=== PATIENT | female | born 1970 | race Caucasian/White ===

== ENCOUNTER 2019-11-23 10:48 | Day surgery (SDC) | payer OTHER ==
[2019-11-23] MEDS ORDERED: Depo-Medrol 40 MG/ML IM ONE (10:49)
[2019-11-23] MEDS ORDERED: Marcaine 0.5% SDV 10 ML IJ ONE (10:49)
[2019-11-23] MEDS ORDERED: Xylocaine 1% Vial 30 ML PF IJ ONE (10:49)
[2019-11-23] MEDS ORDERED: Decadron 4 MG INJ IV ONE (10:49)
[2019-11-23] MEDS ORDERED: Ketamine HCl 50 MG/ML ONE (11:45)
[2019-11-23] MEDS ORDERED: DIPRIVAN 200 MG/20 ML IV ONE (11:45)
--- NOTE | 2019-11-23 14:08 | XRAY ---
Indication: Right SI joint and right piriformis injection. Intraoperative fluoroscopy was provided for 22 seconds. 3 digital spot images submitted for interpretation demonstrates posterior needle tip projecting over the inferior right SI joint. Second needle tip projects over the expected right piriformis muscle with small amount of contrast injected for needle tip placement. Correlate with intraoperative findings/report.
[2019-11-23] MEDS ORDERED: Lactated Ringers 1,000 ML IV ONE (15:40)
--- NOTE | 2019-11-23 16:33 | XRAY ---
22 seconds fluoroscopy time in surgery for right SI joint and right piriformis muscle injection.
== END 2019-11-23 12:15 | disposition home or self-care (01) ==
LOC: SDC-PAIN 10:48
PROVIDERS: ATTEND Psychiatry & Neurology Pain Medicine
DX: M46.1 Sacroiliitis, not elsewhere classified (principal); M53.3 Sacrococcygeal disorders, not elsewhere classified; M79.18 Myalgia, other site; M79.10 Myalgia, unspecified site; Z79.899 Other long term (current) drug therapy
CPT/HCPCS: 20552; 72170; 77002; G0260; 27096; J1030; J1100; J2001; J2704; Q9966

== ENCOUNTER 2020-03-07 11:15 | Day surgery (SDC) | payer OTHER ==
[2020-03-07] MEDS ORDERED: Marcaine 0.5% SDV 10 ML IJ ONE (11:16)
[2020-03-07] MEDS ORDERED: Depo-Medrol 40 MG/ML IM ONE (11:16)
[2020-03-07] MEDS ORDERED: Xylocaine-Mpf 2% 5 Ml Vial ONE (12:56)
[2020-03-07] MEDS ORDERED: Ketamine HCl 50 MG/ML ONE (12:56)
[2020-03-07] MEDS ORDERED: DIPRIVAN 200 MG/20 ML IV ONE (12:56)
--- NOTE | 2020-03-07 14:07 | XRAY ---
Indication: Right greater trochanter injection. Intraoperative fluoroscopy was provided for 5 seconds. Single prone digital spot image submitted for interpretation demonstrates needle tip projecting just lateral to the right greater trochanter. Small amount of contrast injected for needle tip placement. Correlate with intraoperative findings/report.
--- NOTE | 2020-03-07 14:07 | XRAY ---
Indication: Right SI joint injection. Intraoperative fluoroscopy was provided for 6 seconds. 2 digital spot images submitted for interpretation demonstrates posterior needle tip projecting over the inferior right SI joint. Correlate with intraoperative findings/report.
--- NOTE | 2020-03-07 14:11 | XRAY ---
5 seconds fluoroscopy time in surgery for right greater trochanteric injection.
--- NOTE | 2020-03-07 14:11 | XRAY ---
6 seconds fluoroscopy time in surgery for right SI joint injection.
[2020-03-07] MEDS ORDERED: Lactated Ringers 1,000 ML IV ONE (14:33)
== END 2020-03-07 13:25 | disposition home or self-care (01) ==
LOC: SDC-PAIN 11:15
PROVIDERS: ATTEND Psychiatry & Neurology Pain Medicine
DX: M46.1 Sacroiliitis, not elsewhere classified (principal); Z79.899 Other long term (current) drug therapy
CPT/HCPCS: 20610; 72020; 73501; 77002; G0260; 27096; J1030; J2704; Q9966

== ENCOUNTER 2020-09-26 09:20 | Day surgery (SDC) | payer OTHER ==
[2020-09-26] MEDS ORDERED: Depo-Medrol 40 MG/ML IM ONE (09:21)
[2020-09-26] MEDS ORDERED: LIDOCAINE HCL 2% 100 MG/5 ML IJ ONE (09:21)
[2020-09-26] MEDS ORDERED: Ketamine HCl 50 MG/ML ONE (11:13)
[2020-09-26] MEDS ORDERED: DIPRIVAN 200 MG/20 ML IV ONE (11:13)
--- NOTE | 2020-09-26 12:21 | XRAY ---
Indication: Bilateral L4-S1 MBB. Intraoperative fluoroscopy was provided for 10 seconds. Single digital spot image submitted for interpretation demonstrates posterior needle tips projecting over the expected left and right L4-S1 nerve roots. Correlate with intraoperative findings/report.
[2020-09-26] MEDS ORDERED: Lactated Ringers 1,000 ML IV ONE (16:06)
--- NOTE | 2020-09-27 11:44 | XRAY ---
10 seconds of fluoroscopy was used in surgery for a bilateral L4-S1 MBB.
== END 2020-09-26 11:38 | disposition home or self-care (01) ==
LOC: SDC-PAIN 09:20
PROVIDERS: ATTEND Psychiatry & Neurology Pain Medicine
DX: M47.816 Spondylosis without myelopathy or radiculopathy, lumbar region (principal); Z79.899 Other long term (current) drug therapy
CPT/HCPCS: 64493; 64494; 72020; 77002; J1030; J2704

== ENCOUNTER 2020-11-07 11:15 | Day surgery (SDC) | payer OTHER ==
[2020-11-07] MEDS ORDERED: Depo-Medrol 40 MG/ML IM ONE (11:16)
[2020-11-07] MEDS ORDERED: BUPIVACAINE 0.5% VIAL IJ ONE (11:16)
[2020-11-07] MEDS ORDERED: Ketamine HCl 50 MG/ML ONE (13:36)
[2020-11-07] MEDS ORDERED: DIPRIVAN 200 MG/20 ML IV ONE (13:36)
--- NOTE | 2020-11-07 14:23 | XRAY ---
Indication: Bilateral L4-S1 MBB. Intraoperative fluoroscopy was provided for 8 seconds. Single digital spot image submitted for interpretation demonstrates posterior needle tips projecting over the expected left and right L4-S1 nerve roots. Correlate with intraoperative findings/report.
--- NOTE | 2020-11-07 14:26 | XRAY ---
8 seconds fluoroscopy time in surgery for bilateral L4-S1 MBB.
[2020-11-07] MEDS ORDERED: Lactated Ringers 1,000 ML IV ONE (15:28)
== END 2020-11-07 14:05 | disposition home or self-care (01) ==
LOC: SDC-PAIN 11:15
PROVIDERS: ATTEND Psychiatry & Neurology Pain Medicine
DX: M47.816 Spondylosis without myelopathy or radiculopathy, lumbar region (principal); Z79.899 Other long term (current) drug therapy
CPT/HCPCS: 72020; 77002; J1030; J2704

== ENCOUNTER 2021-01-02 14:08 | Day surgery (SDC) | payer OTHER ==
[2021-01-02] MEDS ORDERED: Depo-Medrol 40 MG/ML IM ONE (14:09)
[2021-01-02] MEDS ORDERED: Xylocaine 1% Vial 30 ML PF IJ ONE (14:09)
[2021-01-02] MEDS ORDERED: BUPIVACAINE 0.5% VIAL IJ ONE (14:09)
[2021-01-02] MEDS ORDERED: Ketamine HCl 50 MG/ML ONE (15:08)
[2021-01-02] MEDS ORDERED: DIPRIVAN 200 MG/20 ML IV ONE (15:08)
[2021-01-02] MEDS ORDERED: Lactated Ringers 1,000 ML IV ONE (16:18)
--- NOTE | 2021-01-02 16:31 | XRAY ---
Indication: Right L4-S1 RFA. Intraoperative fluoroscopy provided for 22 seconds. 3 digital spot images submitted for interpretation demonstrates posterior needle tips projecting over the expected right L4-S1 nerve roots. Correlate with intraoperative findings/report.
--- NOTE | 2021-01-02 16:35 | XRAY ---
22 seconds fluoroscopy time in surgery for right L4-S1 RFA.
== END 2021-01-02 15:41 | disposition home or self-care (01) ==
LOC: SDC-PAIN 14:08
PROVIDERS: ATTEND Psychiatry & Neurology Pain Medicine
DX: M47.816 Spondylosis without myelopathy or radiculopathy, lumbar region (principal); M19.90 Unspecified osteoarthritis, unspecified site; Z79.899 Other long term (current) drug therapy
CPT/HCPCS: 64635; 64636; 72100; 77002; J1030; J2001; J2704

== ENCOUNTER 2021-01-16 10:39 | Day surgery (SDC) | payer OTHER ==
[2021-01-16] MEDS ORDERED: Depo-Medrol 40 MG/ML IM ONE (10:40)
[2021-01-16] MEDS ORDERED: Xylocaine 1% Vial 30 ML PF IJ ONE (10:40)
[2021-01-16] MEDS ORDERED: BUPIVACAINE 0.5% VIAL IJ ONE (10:40)
[2021-01-16] MEDS ORDERED: DIPRIVAN 200 MG/20 ML IV ONE (12:00)
[2021-01-16] MEDS ORDERED: Ketamine HCl 50 MG/ML ONE (12:01)
--- NOTE | 2021-01-16 14:14 | XRAY ---
Indication: Left L4-S1 RFA. Intraoperative fluoroscopy provided for 17 seconds. 3 digital spot image submitted for interpretation demonstrates posterior needle tips projecting over the expected left left L4-S1 nerve roots. Correlate with intraoperative findings/report.
--- NOTE | 2021-01-16 14:23 | XRAY ---
17 seconds of fluoroscopy was used in surgery for a left L4-L5, L5-S1 RFA.
[2021-01-16] MEDS ORDERED: Lactated Ringers 1,000 ML IV ONE (15:14)
== END 2021-01-16 12:53 | disposition home or self-care (01) ==
LOC: SDC-PAIN 10:39
PROVIDERS: ATTEND Psychiatry & Neurology Pain Medicine
DX: M47.816 Spondylosis without myelopathy or radiculopathy, lumbar region (principal); Z79.899 Other long term (current) drug therapy
CPT/HCPCS: 64635; 64636; 72100; 77002; J1030; J2001; J2704

== ENCOUNTER 2021-03-06 10:32 | Day surgery (SDC) | payer MEDICARE ==
[2021-03-06] MEDS ORDERED: Depo-Medrol 40 MG/ML IM ONE (10:33)
[2021-03-06] MEDS ORDERED: BUPIVACAINE 0.5% VIAL IJ ONE (10:33)
[2021-03-06] MEDS ORDERED: Lactated Ringers 1,000 ML IV ONE (16:27)
--- NOTE | 2021-03-06 17:39 | XRAY ---
27 seconds fluoroscopy time in surgery for bilateral SI joint injections.
== END 2021-03-06 12:04 | disposition home or self-care (01) ==
LOC: SDC-PAIN 10:32
PROVIDERS: ATTEND Psychiatry & Neurology Pain Medicine
DX: M46.1 Sacroiliitis, not elsewhere classified (principal); Z79.899 Other long term (current) drug therapy
CPT/HCPCS: 27096; 72202; 77002; G0260; J1030

== ENCOUNTER 2021-04-24 13:19 | Day surgery (SDC) | payer MEDICARE ==
[2021-04-24] MEDS ORDERED: BUPIVACAINE 0.5% VIAL IJ ONE (13:20)
[2021-04-24] MEDS ORDERED: Depo-Medrol 40 MG/ML IM ONE (13:20)
[2021-04-24] MEDS ORDERED: Xylocaine 1% Vial 30 ML PF IJ ONE (13:20)
[2021-04-24] MEDS ORDERED: DIPRIVAN 200 MG/20 ML IV ONE (14:32)
--- NOTE | 2021-04-24 15:09 | XRAY ---
Indication: Right SI joint RFA. Intraoperative fluoroscopy provided for 25 seconds. 2 digital spot image submitted for interpretation demonstrates 4 posterior needle tips projecting over the right sacrum. Correlate with intraoperative findings/report.
[2021-04-24] MEDS ORDERED: Lactated Ringers 1,000 ML IV ONE (15:34)
--- NOTE | 2021-04-24 16:50 | XRAY ---
25 seconds fluoroscopy time in surgery for left SI joint RFA.
== END 2021-04-24 15:05 | disposition home or self-care (01) ==
LOC: SDC-PAIN 13:19
PROVIDERS: ATTEND Psychiatry & Neurology Pain Medicine
DX: M47.816 Spondylosis without myelopathy or radiculopathy, lumbar region (principal); Z79.899 Other long term (current) drug therapy
CPT/HCPCS: 64625; 72100; 77002; J1030; J2001; J2704

== ENCOUNTER 2021-05-08 12:43 | Day surgery (SDC) | payer MEDICARE ==
[2021-05-08] MEDS ORDERED: BUPIVACAINE 0.5% VIAL IJ ONE (12:44)
[2021-05-08] MEDS ORDERED: Xylocaine 1% Vial 30 ML PF IJ ONE (12:44)
[2021-05-08] MEDS ORDERED: Depo-Medrol 40 MG/ML IM ONE (12:44)
[2021-05-08] MEDS ORDERED: DIPRIVAN 200 MG/20 ML IV ONE (15:16)
[2021-05-08] MEDS ORDERED: Lactated Ringers 1,000 ML IV ONE (17:32)
--- NOTE | 2021-05-09 08:01 | XRAY ---
39 seconds fluoroscopy time in surgery for RFA of the left SI joint.
== END 2021-05-08 15:45 | disposition home or self-care (01) ==
LOC: SDC-PAIN 12:43
PROVIDERS: ATTEND Psychiatry & Neurology Pain Medicine
DX: M46.1 Sacroiliitis, not elsewhere classified (principal); Z79.899 Other long term (current) drug therapy
CPT/HCPCS: 64625; 72202; 77002; J1030; J2001; J2704

== ENCOUNTER 2021-11-13 14:54 | Day surgery (SDC) | payer MEDICARE ==
[2021-11-13] MEDS ORDERED: Xylocaine 1% Vial 30 ML PF IJ ONE (14:55)
[2021-11-13] MEDS ORDERED: Versed 2 MG/2 ML Injection ONE (17:02)
[2021-11-13] MEDS ORDERED: Lactated Ringers 1,000 ML IV ONE ×2 (17:17→18:53)
[2021-11-13] MEDS ORDERED: BACIGUENT 30 GM ONE (18:26)
[2021-11-13] MEDS ORDERED: DIPRIVAN 200 MG/20 ML IV ONE (18:28)
[2021-11-13] MEDS ORDERED: MORPHINE SULFATE 2 MG INJ ONE ×2 (19:25→19:30)
--- NOTE | 2021-11-13 22:19 | XRAY ---
Indication: Spinal cord stimulator insertion. Intraoperative fluoroscopy provided for 2 minutes 13 seconds. 7 digital spot image submitted for interpretation demonstrates introducer needle tip projecting T12. Ultimately single epidural lead terminates approximately T7. Correlate with intraoperative findings/report.
--- NOTE | 2021-11-14 08:52 | XRAY ---
2 minutes and 13 seconds of fluoroscopy was used in surgery for a spinal cord stimulator from T7-T12.
== END 2021-11-13 19:35 | disposition home or self-care (01) ==
LOC: SDC-PAIN 14:54
PROVIDERS: ATTEND Psychiatry & Neurology Pain Medicine
DX: M54.16 Radiculopathy, lumbar region (principal); Z79.899 Other long term (current) drug therapy
CPT/HCPCS: 63650; 72100; 77002; C1778; 01937; J2001; J2250; J2270; J2704; A9270-GY

== ENCOUNTER 2022-03-12 08:34 | Day surgery (SDC) | payer MEDICARE ==
[2022-03-12] MEDS ORDERED: Marcaine Mpf 0.5% Vial 30 Ml IJ ONE (08:35)
[2022-03-12] MEDS ORDERED: Depo-Medrol 40 MG/ML IM ONE (08:35)
[2022-03-12] MEDS ORDERED: Xylocaine 1% Vial 30 ML PF IJ ONE (08:35)
[2022-03-12] MEDS ORDERED: Versed 2 MG/2 ML Injection ONE (09:06)
[2022-03-12] MEDS ORDERED: Lactated Ringers 1,000 ML IV ONE ×2 (09:32→10:28)
[2022-03-12] MEDS ORDERED: DIPRIVAN 200 MG/20 ML IV ONE (10:13)
[2022-03-12] MEDS ORDERED: TRANDATE 20 MG/4 ML SYRINGE IV ONE (10:31)
--- NOTE | 2022-03-12 10:43 | XRAY ---
Indication: Left L4-S1 RFA. Intraoperative fluoroscopy provided for 25 seconds. 4 digital spot image submitted for interpretation demonstrates posterior needle tips projecting over the expected left L4-S1 nerve roots. Correlate with intraoperative findings/report. Incidental partially visualized right epidural stimulator device/leads.
--- NOTE | 2022-03-12 11:35 | XRAY ---
25 seconds of fluoroscopy was used in surgery for a left L4-S1 RFA.
== END 2022-03-12 10:45 | disposition home or self-care (01) ==
LOC: SDC-PAIN 08:34
PROVIDERS: ATTEND Psychiatry & Neurology Pain Medicine
DX: M47.816 Spondylosis without myelopathy or radiculopathy, lumbar region (principal); Z79.899 Other long term (current) drug therapy
CPT/HCPCS: 64635; 64636; 72100; 77002; J1030; J2001; J2250; J2704

== ENCOUNTER 2022-03-19 07:40 | Day surgery (SDC) | payer MEDICARE ==
[2022-03-19] MEDS ORDERED: Depo-Medrol 40 MG/ML IM ONE (07:41)
[2022-03-19] MEDS ORDERED: Xylocaine 1% Vial 30 ML PF IJ ONE (07:41)
[2022-03-19] MEDS ORDERED: Marcaine Mpf 0.5% Vial 30 Ml IJ ONE (07:41)
[2022-03-19] MEDS ORDERED: Lactated Ringers 1,000 ML IV ONE (09:11)
[2022-03-19] MEDS ORDERED: DIPRIVAN 200 MG/20 ML IV ONE (09:31)
--- NOTE | 2022-03-19 11:40 | XRAY ---
Indication: Right L4-S1 RFA. Intraoperative fluoroscopy provided for 24 seconds. 3 digital spot image submitted for interpretation demonstrate posterior needle tips projecting over the expected right L4-S1 nerve roots. Correlate with intraoperative findings/report. Incidental partially visualized right epidural stimulator device/leads.
--- NOTE | 2022-03-19 11:44 | XRAY ---
24 seconds of fluoroscopy was used in surgery for a right L4-S1 RFA.
== END 2022-03-19 10:07 | disposition home or self-care (01) ==
LOC: SDC-PAIN 07:40
PROVIDERS: ATTEND Psychiatry & Neurology Pain Medicine
DX: M47.816 Spondylosis without myelopathy or radiculopathy, lumbar region (principal); Z79.899 Other long term (current) drug therapy
CPT/HCPCS: 64635; 64636; 72100; 77002; J1030; J2001; J2704

== ENCOUNTER 2022-06-04 12:13 | Day surgery (SDC) | payer MEDICARE ==
[2022-06-04] MEDS ORDERED: LIDOCAINE HCL 2% 100 MG/5 ML IJ ONE (12:14)
[2022-06-04] MEDS ORDERED: DIPRIVAN 200 MG/20 ML IV ONE (13:53)
[2022-06-04] MEDS ORDERED: Lactated Ringers 1,000 ML IV ONE (15:07)
--- NOTE | 2022-06-04 16:27 | XRAY ---
Indication: Left C2-C5 MBB. Intraoperative fluoroscopy provided for 15 seconds. 2 digital spot image submitted for interpretation demonstrates posterior needle tips projecting over the expected left C2-C5 nerve roots. Correlate with intraoperative findings/report.
--- NOTE | 2022-06-04 16:45 | XRAY ---
15 seconds of fluoroscopy was used in surgery for a left C2-C5 MBB.
== END 2022-06-04 14:25 | disposition home or self-care (01) ==
LOC: SDC-PAIN 12:13
PROVIDERS: ATTEND Psychiatry & Neurology Pain Medicine
DX: M47.812 Spondylosis without myelopathy or radiculopathy, cervical region (principal); Z79.899 Other long term (current) drug therapy
CPT/HCPCS: 64490; 64491; 64492; 72040; 77002; J2704

== ENCOUNTER 2022-06-25 10:14 | Day surgery (SDC) | payer MEDICARE ==
[2022-06-25] MEDS ORDERED: BUPIVACAINE 0.5% VIAL IJ ONE (10:15)
[2022-06-25] MEDS ORDERED: Decadron 4 MG INJ IV ONE (10:15)
[2022-06-25] MEDS ORDERED: Versed 2 MG/2 ML Injection ONE (10:41)
[2022-06-25] MEDS ORDERED: DIPRIVAN 200 MG/20 ML IV ONE ×2 (11:39→11:40)
[2022-06-25] MEDS ORDERED: TORAdol 30 mg Injection ONE (11:58)
[2022-06-25] MEDS ORDERED: Lactated Ringers 1,000 ML IV ONE (12:45)
--- NOTE | 2022-06-25 13:14 | XRAY ---
Indication: Left C2-C5 MBB. Intraoperative fluoroscopy provided for 13 seconds. 2 digital spot image submitted for interpretation demonstrate posterior needle tips projecting over the expected left C2-C5 nerve roots. Correlate with intraoperative findings/report.
--- NOTE | 2022-06-25 13:34 | XRAY ---
13 seconds fluoroscopy time in surgery for left C2-C5 MBB.
== END 2022-06-25 12:05 | disposition home or self-care (01) ==
LOC: SDC-PAIN 10:14
PROVIDERS: ATTEND Psychiatry & Neurology Pain Medicine
DX: M47.812 Spondylosis without myelopathy or radiculopathy, cervical region (principal); Z79.899 Other long term (current) drug therapy
CPT/HCPCS: 64490; 64491; 64492; 72040; 77002; J1100; J1885; J2250; J2704

== ENCOUNTER 2022-07-30 10:37 | Day surgery (SDC) | payer MEDICARE ==
[2022-07-30] MEDS ORDERED: XYLOCAINE-MPF 1% 5ML SDV IJ ONE (10:38)
[2022-07-30] MEDS ORDERED: Marcaine Mpf 0.5% Vial 30 Ml IJ ONE (10:38)
[2022-07-30] MEDS ORDERED: Decadron 4 MG INJ IV ONE (10:38)
[2022-07-30] MEDS ORDERED: Versed 2 MG/2 ML Injection ONE (11:24)
[2022-07-30] MEDS ORDERED: DIPRIVAN 200 MG/20 ML IV ONE (13:06)
[2022-07-30] MEDS ORDERED: Lactated Ringers 1,000 ML IV ONE (14:22)
--- NOTE | 2022-07-30 14:36 | XRAY ---
Indication: Left C2-C4 RFA. Intraoperative fluoroscopy provided for 23 seconds. 5 digital spot image submitted for interpretation demonstrates posterior needle tips projecting over the expected left C2-C4 nerve roots. Correlate with intraoperative findings/report.
--- NOTE | 2022-07-30 15:12 | XRAY ---
23 seconds fluoroscopy time in surgery for left C2-C4 RFA.
== END 2022-07-30 13:33 | disposition home or self-care (01) ==
LOC: SDC-PAIN 10:37
PROVIDERS: ATTEND Psychiatry & Neurology Pain Medicine
DX: M47.812 Spondylosis without myelopathy or radiculopathy, cervical region (principal); Z79.899 Other long term (current) drug therapy
CPT/HCPCS: 01939; 64633; 64634; 72040; 77002; J1100; J2250; J2704

== ENCOUNTER 2023-04-08 07:33 | Day surgery (SDC) | payer MEDICARE ==
[2023-04-08] MEDS ORDERED: LIDOCAINE HCL 1% 50 MG/5 ML VL PF IJ ONE (07:34)
[2023-04-08] MEDS ORDERED: BUPIVACAINE 0.5% VIAL IJ ONE (07:34)
[2023-04-08] MEDS ORDERED: Depo-Medrol 40 MG/ML IM ONE (07:34)
[2023-04-08] MEDS ORDERED: DIPRIVAN 200 MG/20 ML IV ONE (09:07)
--- NOTE | 2023-04-08 10:27 | XRAY ---
Indication: Right L4-S1 RFA. Intraoperative fluoroscopy provided for 32 seconds. 6 digital spot image submitted for interpretation demonstrates posterior needle tips projecting over the expected right L4-S1 nerve roots. Correlate with intraoperative findings/report. Incidental partially visualized right epidural stimulator device/leads.
--- NOTE | 2023-04-08 13:36 | XRAY ---
32 seconds of fluoroscopy was used in surgery for a right L4-S1 RFA.
[2023-04-08] MEDS ORDERED: Lactated Ringers 1,000 ML IV ONE (13:51)
== END 2023-04-08 09:35 | disposition home or self-care (01) ==
LOC: SDC-PAIN 07:33
PROVIDERS: ATTEND Psychiatry & Neurology Pain Medicine
DX: M47.816 Spondylosis without myelopathy or radiculopathy, lumbar region (principal); Z79.899 Other long term (current) drug therapy
CPT/HCPCS: 64635; 64636; 72100; 77002; J1030; J2001; J2704

== ENCOUNTER 2023-04-15 06:45 | Day surgery (SDC) | payer MEDICARE ==
[2023-04-15] MEDS ORDERED: Depo-Medrol 40 MG/ML IM ONE (06:46)
[2023-04-15] MEDS ORDERED: LIDOCAINE HCL 1% 50 MG/5 ML VL PF IJ ONE (06:46)
[2023-04-15] MEDS ORDERED: BUPIVACAINE 0.5% VIAL IJ ONE (06:46)
[2023-04-15] MEDS ORDERED: DIPRIVAN 200 MG/20 ML IV ONE (09:00)
--- NOTE | 2023-04-15 10:17 | XRAY ---
Indication: Left L4-S1 RFA. Intraoperative fluoroscopy provided for 18 seconds. 3 digital spot image submitted for interpretation demonstrates posterior needle tips projecting over the expected left L4-S1 nerve roots. Correlate with intraoperative findings/report. Incidental partially visualized right epidural stimulator device/leads.
--- NOTE | 2023-04-15 10:43 | XRAY ---
18 seconds of fluoroscopy was used in surgery for a left L4-S1 RFA.
[2023-04-15] MEDS ORDERED: Lactated Ringers 1,000 ML IV ONE (11:01)
== END 2023-04-15 09:22 | disposition home or self-care (01) ==
LOC: SDC-PAIN 06:45
PROVIDERS: ATTEND Psychiatry & Neurology Pain Medicine
DX: M47.816 Spondylosis without myelopathy or radiculopathy, lumbar region (principal); Z79.899 Other long term (current) drug therapy
CPT/HCPCS: 64635; 64636; 72100; 77002; J1030; J2001; J2704

== ENCOUNTER 2023-09-09 10:39 | Day surgery (SDC) | payer MEDICARE ==
[2023-09-09] MEDS ORDERED: Depo-Medrol 40 MG/ML IM ONE (10:40)
[2023-09-09] MEDS ORDERED: BUPIVACAINE 0.5% VIAL IJ ONE (10:40)
[2023-09-09] MEDS ORDERED: XYLOCAINE-MPF 1% 5ML SDV IJ ONE (10:40)
[2023-09-09] MEDS ORDERED: Decadron 4 MG INJ IV ONE (10:40)
[2023-09-09] MEDS ORDERED: DIPRIVAN 200 MG/20 ML IV ONE ×2 (12:27→12:35)
[2023-09-09] MEDS ORDERED: MORPHINE SULFATE 2 MG INJ ONE (12:58)
--- NOTE | 2023-09-09 13:08 | XRAY ---
Indication: Right hip and right piriformis injection. Intraoperative fluoroscopy provided for 23 seconds. 3 digital spot image obtained prone submitted for interpretation demonstrates posterior needle tip projecting over right piriformis. Second needle tip lateral to right femur neck. Small amount of contrast injected for both needle tip placement. Correlate with intraoperative findings/report.
[2023-09-09] MEDS ORDERED: Lactated Ringers 1,000 ML IV ONE (14:34)
--- NOTE | 2023-09-09 15:07 | XRAY ---
23 seconds of fluoroscopy was used in surgery for a right intra-articular hip and piriformis injection.
== END 2023-09-09 13:20 | disposition home or self-care (01) ==
LOC: SDC-PAIN 10:39
PROVIDERS: ATTEND Psychiatry & Neurology Pain Medicine
DX: M16.11 Unilateral primary osteoarthritis, right hip (principal); M79.18 Myalgia, other site
CPT/HCPCS: 20553; 20610; 73502; 77002; J1030; J1100; J2270; J2704; Q9966

== ENCOUNTER 2024-08-10 14:12 | Day surgery (SDC) | payer MEDICARE ==
[2024-08-10] MEDS ORDERED: BUPIVACAINE 0.5% VIAL IJ ONE (14:13)
[2024-08-10] MEDS ORDERED: LIDOCAINE HCL 1% AMPUL 5 ML IJ ONE (14:13)
[2024-08-10] MEDS ORDERED: Depo-Medrol 40 MG/ML IM ONE (14:13)
[2024-08-10] MEDS ORDERED: DIPRIVAN 200 MG/20 ML IV ONE (16:18)
--- NOTE | 2024-08-10 18:22 | XRAY ---
Indication: Right L4-S1 RFA. Intraoperative fluoroscopy provided for 22 seconds. 5 digital spot image submitted for interpretation demonstrates posterior needle tips projecting over expected right L4-S1 nerve roots. Correlate with intraoperative findings/report. Incidental partially visualized right epidural stimulator device/leads.
--- NOTE | 2024-08-11 08:37 | XRAY ---
22 seconds of fluoroscopy was used in surgery for a right L4-S1 RFA.
== END 2024-08-10 16:56 | disposition home or self-care (01) ==
LOC: SDC-PAIN 14:12
PROVIDERS: ATTEND Psychiatry & Neurology Pain Medicine
DX: M47.816 Spondylosis without myelopathy or radiculopathy, lumbar region (principal)
CPT/HCPCS: 64635; 64636; 72100; 77002; J2704

== ENCOUNTER 2024-08-17 11:55 | Day surgery (SDC) | payer MEDICARE ==
[2024-08-17] MEDS ORDERED: Depo-Medrol 40 MG/ML IM ONE (11:56)
[2024-08-17] MEDS ORDERED: LIDOCAINE HCL 1% AMPUL 5 ML IJ ONE (11:56)
[2024-08-17] MEDS ORDERED: BUPIVACAINE 0.5% VIAL IJ ONE (11:56)
[2024-08-17] MEDS ORDERED: DIPRIVAN 200 MG/20 ML IV ONE (13:51)
[2024-08-17] MEDS ORDERED: Xylocaine-Mpf 2% 5 Ml Vial ONE (13:52)
--- NOTE | 2024-08-17 16:37 | XRAY ---
Indication: Left L4-S1 RFA. Intraoperative fluoroscopy provided for 14 seconds. 3 digital spot image submitted for interpretation demonstrates posterior needle tips projecting over the expected left L4-S1 nerve roots. Correlate with intraoperative findings/report. Incidental partially visualized right epidural stimulator device/leads
--- NOTE | 2024-08-17 16:45 | XRAY ---
14 seconds of fluoroscopy was used in surgery for a left L4-S1 RFA.
== END 2024-08-17 14:22 | disposition home or self-care (01) ==
LOC: SDC-PAIN 11:55
PROVIDERS: ATTEND Psychiatry & Neurology Pain Medicine
DX: M47.817 Spondylosis without myelopathy or radiculopathy, lumbosacral region (principal)
CPT/HCPCS: 64635; 64636; 72100; 77002; J2704

== ENCOUNTER 2025-07-05 11:39 | Day surgery (SDC) | payer MEDICARE, SELFPAY ==
[2025-07-05] MEDS ORDERED: BUPIVACAINE 0.5% VIAL IJ ONE (11:40)
[2025-07-05] MEDS ORDERED: LIDOCAINE HCL 1% 50 MG/5 ML VL IJ ONE (11:40)
[2025-07-05] MEDS ORDERED: methylPREDNISolone acetate IM ONE (11:40)
[2025-07-05] MEDS ORDERED: propofoL IV ONE (13:19)
[2025-07-05] MEDS ORDERED: Lactated Ringers 1,000 ML IV ONE (13:39)
--- NOTE | 2025-07-05 17:03 | XRAY ---
Indication: Right L4-S1 RFA. Intraoperative fluoroscopy provided for 22 seconds. 5 digital spot image submitted for interpretation demonstrates posterior needle tips projecting over expected right L4-S1 nerve roots. Correlate with intraoperative findings/report. Incidental incompletely visualized right epidural stimulator device/leads.
--- NOTE | 2025-07-05 17:07 | XRAY ---
22 seconds of fluoroscopy was used in surgery for a right L4-S1 RFA.
== END 2025-07-05 14:05 | disposition home or self-care (01) ==
LOC: SDC-PAIN 11:39
PROVIDERS: ATTEND Psychiatry & Neurology Pain Medicine
DX: M47.817 Spondylosis without myelopathy or radiculopathy, lumbosacral region (principal)

== ENCOUNTER 2025-07-19 11:30 | Day surgery (SDC) | payer MEDICARE ==
[2025-07-19] MEDS ORDERED: LIDOCAINE HCL 1% 50 MG/5 ML VL IJ ONE (11:31)
[2025-07-19] MEDS ORDERED: methylPREDNISolone acetate IM ONE (11:31)
[2025-07-19] MEDS ORDERED: BUPIVACAINE 0.5% VIAL IJ ONE (11:31)
[2025-07-19] MEDS ORDERED: propofoL IV ONE (13:38)
[2025-07-19] MEDS ORDERED: Lactated Ringers 1,000 ML IV ONE (13:48)
[2025-07-19] MEDS ORDERED: MORPHINE SULFATE 2 MG INJ ONE (13:54)
[2025-07-19] MEDS ORDERED: DILAUDID 0.5 MG/0.5 ML SYRINGE ONE (14:20)
--- NOTE | 2025-07-19 14:51 | XRAY ---
Indication: Left L4-S1 RFA. Intraoperative fluoroscopy provided for 11 seconds. 4 digital spot images submitted for interpretation demonstrates posterior needle tips projecting over expected left L4-S1 nerve roots. Correlate with intraoperative findings/report. Incidental incompletely visualized right epidural stimulator device/leads.
--- NOTE | 2025-07-19 16:54 | XRAY ---
11 seconds of fluoroscopy was used in surgery for a left L4-S1 RFA.
== END 2025-07-19 14:41 | disposition home or self-care (01) ==
LOC: SDC-PAIN 11:30
PROVIDERS: ATTEND Psychiatry & Neurology Pain Medicine
DX: M47.817 Spondylosis without myelopathy or radiculopathy, lumbosacral region (principal)

== ENCOUNTER 2025-08-23 12:21 | Day surgery (SDC) | payer MEDICARE, SELFPAY ==
[2025-08-23] MEDS ORDERED: methylPREDNISolone acetate IM ONE (12:22)
[2025-08-23] MEDS ORDERED: BUPIVACAINE 0.5% VIAL IJ ONE (12:22)
[2025-08-23] MEDS ORDERED: propofoL IV ONE (14:22)
[2025-08-23] MEDS ORDERED: Lactated Ringers 1,000 ML IV ONE (14:53)
--- NOTE | 2025-08-23 16:43 | XRAY ---
Indication: Right SI joint injection. Intraoperative fluoroscopy provided for 14 seconds. Single digital spot image submitted for interpretation demonstrates posterior needle tip projecting over right SI joint. Small amount of contrast injected for needle tip placement. Correlate with intraoperative findings/report.
--- NOTE | 2025-08-23 16:59 | XRAY ---
14 seconds of fluoroscopy was used in surgery for in surgery a right sacroiliac joint injection.
== END 2025-08-23 14:58 | disposition home or self-care (01) ==
LOC: SDC-PAIN 12:21
PROVIDERS: ATTEND Psychiatry & Neurology Pain Medicine
DX: M46.1 Sacroiliitis, not elsewhere classified (principal)